=== PATIENT | male | born 1940 | race Caucasian/White ===

== ENCOUNTER 2017-06-05 12:17 | Emergency (ER) | payer MEDICARE, OTHER ==
[~2017-06-05] VITALS: Ht 177.8 cm; Wt 100.0 kg
[~2017-06-05 12:17] MED LIST: KEFLEX500 M1 PO; LORTAB 5 OR; ROBITUSSIN AC10 ML PO
[2017-06-05] MEDS ORDERED: ATORVASTATIN CA10 MG PO (12:50)
[2017-06-05] MEDS ORDERED: METFORMIN500 M2 PO (12:50)
[2017-06-05] MEDS ORDERED: LEVOTHYROXIN175 MC1 PO (12:50)
[2017-06-05] MEDS ORDERED: HYDROCHLOROT25 MG PO (12:51)
[2017-06-05] MEDS ORDERED: ATENOLOL50 MG PO (12:51)
[2017-06-05] MEDS ORDERED: PEPCID20 MG PO (12:51)
[2017-06-05] MEDS ORDERED: ASPIRIN 8181 MG PO (12:51)
[2017-06-05] MEDS ORDERED: ULTRAM50 M1 PO (12:52)
[2017-06-05] MEDS ORDERED: ALLEGRA180 MG PO (12:53)
[2017-06-05 13:46] VITALS: BP 130/80
== END 2017-06-05 13:55 | disposition home or self-care (01) ==
LOC: ED 12:17
PROC: 2W38X1Z Immobilization of Right Upper Extremity using Splint (ICD-10-PCS; principal; 2017-06-05)
DX: S52.124A Nondisplaced fracture of head of right radius, initial encounter for closed fracture (principal); W17.89XA Other fall from one level to another, initial encounter; Y93.89 Activity, other specified; Y92.009 Unspecified place in unspecified non-institutional (private) residence as the place of occurrence of the external cause

== ENCOUNTER 2020-06-15 11:23 | Emergency (ER) | payer MEDICARE, OTHER ==
[~2020-06-15] VITALS: Ht 177.8 cm; Wt 97.0 kg
[~2020-06-15 11:23] MED LIST changes: +ALLEGRA180 MG PO; +ASPIRIN 8181 MG PO; +ATENOLOL50 MG PO; +ATORVASTATIN CA10 MG PO; +HYDROCHLOROT25 MG PO; +LEVOTHYROXIN175 MC1 PO; +METFORMIN500 M2 PO; +PEPCID20 MG PO; +ULTRAM50 M1 PO
[2020-06-15 12:32] VITALS: BP 133/76
== END 2020-06-15 12:32 | disposition home or self-care (01) ==
LOC: ED 11:23
DX: T88.1XXA Other complications following immunization, not elsewhere classified, initial encounter (principal); M79.89 Other specified soft tissue disorders; I10 Essential (primary) hypertension; E11.9 Type 2 diabetes mellitus without complications; E03.9 Hypothyroidism, unspecified; E78.00 Pure hypercholesterolemia, unspecified; Y84.8 Other medical procedures as the cause of abnormal reaction of the patient, or of later complication, without mention of misadventure at the time of the procedure; Z79.84 Long term (current) use of oral hypoglycemic drugs